=== PATIENT | female | born 1990 | race Caucasian/White ===

== ENCOUNTER 2023-07-17 14:13 | Outpatient (CLI) | payer OTHER, SELFPAY ==
--- NOTE | ~2023-07-17 | US_ITS ---
EXAMINATION: US pelvic complete DATE: 07/17/2023 15:19 INDICATION: Abnormal weight gain. Hirsutism. Snoring. TECHNIQUE: Multiple transabdominal sonographic images of the pelvis were obtained. COMPARISON: None. FINDINGS: The uterus measures 7.7 x 3.7 x 4.1 cm. There is no free fluid in the pelvis. The endometrial complex measures 8 mm in thickness. The right ovary measures 3.7 x 1.5 x 1.2 cm. The left ovary measures 2.7 x 1.5 x 1.4 cm. There is normal vascular flow in the ovaries. IMPRESSION: 1. Normal pelvis. Reviewed, dictated and finalized at location A. [employer] IMPRESSION: 1. Normal pelvis.
== END 2023-07-17 14:14 | disposition home or self-care (01) ==
LOC: ANHIMG 14:15
PROVIDERS: PCP Nurse Practitioner Family; Visit Provider Internal Medicine
DX: E07.9 Disorder of thyroid, unspecified (principal); L68.0 Hirsutism; R63.5 Abnormal weight gain; R06.83 Snoring
CPT/HCPCS: 76856